=== PATIENT | male | born 1995 | race Two or more races ===

== ENCOUNTER 2025-04-20 22:17 | Emergency (ER) | payer BC ==
[~2025-04-20] VITALS: Ht 170.2 cm; Wt 81.6 kg
[2025-04-20 23:41] VITALS: BP 130/88; TEMP 98.1
[2025-04-21 01:30] VITALS: O2SAT 99
== END 2025-04-21 01:30 | disposition home or self-care (01) ==
LOC: ER 22:24
DX: M25.572 Pain in left ankle and joints of left foot (principal); Z60.2 Problems related to living alone
CPT/HCPCS: 73610-TC